=== PATIENT | female | born 1980 | race Caucasian/White ===

== ENCOUNTER 2018-02-25 08:25 | Day surgery (SDC) | payer BC ==
[2018-02-22 11:24] LABS: HEMATOCRIT 41.2 % (36.0-47.0); HEMOGLOBIN 14.2 g/dL (12.0-15.5); MEAN CORPUSCULAR HEMOGLOBIN 32.2 pg (27.0-33.4); MEAN CORPUSCULAR HGB CONC 34.4 g/dL (32.0-36.0); MEAN CORPUSCULAR VOLUME 94 fl (80-97); PLATELET COUNT 205 10^3/uL (150-450); RED CELL DISTRIBUTION WIDTH 12.2 % (11.5-14.0); WHITE BLOOD COUNT 6.4 10^3/uL (4.0-10.5)
[2018-02-22 11:40] LABS: APPEARANCE,URINE SLIGHTLY-CLOUDY; BILIRUBIN,URINE NEGATIVE (NEGATIVE); COLOR,URINE YELLOW; GLUCOSE, URINE NEGATIVE (NEGATIVE); KETONES,URINE NEGATIVE (NEGATIVE); LEUKOCYTE ESTERASE,URINE TRACE (NEGATIVE); NITRITE,URINE NEGATIVE (NEGATIVE); PROTEIN,URINE NEGATIVE (NEGATIVE); UROBILINOGEN,URINE NEGATIVE mg/dL (<2.0)
[~2018-02-25 08:25] MED LIST: LACTATED RINGERS 1000 ML IV PRN; LIDOCAINE 0.5% INJ-PF (5 MG/ML) 50 ML SDV SUBCUT PRN
[2018-02-25] MEDS ORDERED: PROPOFOL INJ 200 MG/20 ML VIAL IV ONE (10:41)
[2018-02-25] MEDS ORDERED: MIDAZOLAM 2 MG/2 ML INJ ONE (10:41)
[2018-02-25] MEDS ORDERED: FENTANYL CITRATE INJ/PF 100 MCG/2 ML AMPUL ONE (10:41)
[2018-02-25] MEDS ORDERED: ACETAMINOPHEN 1,000 MG/100 ML RTUPB IV ONE (10:41)
[2018-02-25] MEDS ORDERED: EPHEDRINE SULFATE INJ 50 MG/1 ML AMPULE ONE (10:41)
[2018-02-25] MEDS ORDERED: MEPERIDINE HCL/PF INJ 25 MG/1 ML DISP.SYRIN IV PRN (11:27)
[2018-02-25] MEDS ORDERED: DIPHENHYDRAMINE HCL 50 MG/ML VIAL IV PRN (11:27)
[2018-02-25] MEDS ORDERED: PROMETHAZINE HCL INJ 25 MG/1 ML VIAL IV PRN (11:27)
[2018-02-25] MEDS ORDERED: FENTANYL CITRATE INJ/PF 100 MCG/2 ML AMPUL IV PRN ×3 (11:27)
[2018-02-25] MEDS ORDERED: MORPHINE SULFATE 10 MG/ML INJ IV PRN ×2 (11:27→12:17)
[2018-02-25] MEDS ORDERED: ONDANSETRON HCL INJ/PF 4 MG/2 ML SDV IV PRN (12:18)
[2018-02-25] MEDS ORDERED: IBUPROFEN 800 MG TABLET PO PRN (12:19)
[2018-02-25] MEDS ORDERED: OXYCODONE-ACETAMINOPHEN 5-325 MG TABLET PO PRN (12:19)
[2018-02-25] MEDS ORDERED: LIDOCAINE 2% INJ-PF (20 MG/ML) 2 ML AMPUL ONE (13:21)
[2018-02-25] MEDS ORDERED: DEXAMETHASONE SOD PHOSPHATE INJ 4 MG/1 ML VIAL ONE (13:21)
[2018-02-25] MEDS ORDERED: NEOSTIGMINE METHYLSULFATE 10 MG/10 ML VIAL ONE (13:21)
[2018-02-25] MEDS ORDERED: KETOROLAC TROMETHAMINE 60 MG/2 ML SDV ONE (13:21)
[2018-02-25] MEDS ORDERED: ROCURONIUM BROMIDE INJ 50 MG/5 ML VIAL IV ONE (13:21)
[2018-02-25] MEDS ORDERED: METOCLOPRAMIDE HCL INJ/PF 10 MG/2 ML SDV ONE (13:21)
[2018-02-25] MEDS ORDERED: SUCCINYLCHOLINE CHLORIDE INJ 200 MG/10 ML VIAL ONE (13:21)
[2018-02-25] MEDS ORDERED: ONDANSETRON HCL INJ/PF 4 MG/2 ML SDV ONE (13:21)
[2018-02-25] MEDS ORDERED: GLYCOPYRROLATE 1 MG/5 ML SYRINGE ONE (13:21)
--- NOTE | 2018-02-25 13:43 | OPERATIVE REPORT E ---
Operative Report NAME: VA KUO : 1980 AGE: 37Y DATE OF SURGERY: 02/25/2018 ROOM: PREOPERATIVE DIAGNOSIS: Undesired fertility. POSTOPERATIVE DIAGNOSIS: Undesired fertility. SURGEON: SOLEDAD WITT M.D. ANESTHESIA: Dr. Bell with general. FINDINGS: Uterus sounded to approximately 10 cm. Normal uterus, tubes, and ovaries. ESTIMATED BLOOD LOSS: 50 mL. SPECIMENS REMOVED: Bilateral fallopian tubes. PROCEDURE: Laparoscopic bilateral salpingectomy. PROCEDURE IN DETAIL: The patient was taken to the operating room and prepared and draped in a normal sterile fashion in the dorsal lithotomy position. Under sterile conditions, an in-and-out catheter was performed of approximately 100 mL of clear urine. A sterile speculum was placed in the vagina and the cervix was grasped on the anterior lip with a single-toothed tenaculum and prepped with Betadine. Uterine sound was introduced for the above findings noted. A Hulka clamp was then placed through the cervix for uterine manipulation. The speculum was removed and the gloves were changed and attention was turned to the upper portion of the case where an umbilical skin incision was made with a scalpel. An attempt to enter the peritoneal cavity with the Veress needle was not successful so a cutdown was performed and we entered using the Optiview with direct visualization. Once peritoneal cavity placement was obtained, the abdomen was insufflated with approximately 2 L of CO2 gas and the patient was placed in steep Trendelenburg. The left and right 5 mm ports were placed under direct visualization and beginning with the left fallopian tube, this was grasped with an atraumatic grasper and this fallopian tube was removed using the LigaSure device with good hemostasis. We then turned our attention to the right adnexa and repeated this in a similar fashion removing the fallopian tube starting at the fimbriated end with a LigaSure and elevating with an atraumatic grasper. We then removed both fallopian tubes through the right port. I moved the camera to the lower right and left ports in order to examine for any bleeding and deemed the liver and gallbladder and omentum were all noted to be hemostatic and normal. We had noticed some bleeding coming from the abdominal wall during the procedure, so I did inspect the abdominal wall near the umbilical incision and found this to have a small amount of oozing coming from the subcutaneous layers, but no other gloria injury was noted, and once again, I looked at the omentum and found it to be hemostatic and no explanation for any other bleeding. The ports were then removed under direct visualization. The umbilical port was left for deflation and this was performed and then the port was removed. The skin was closed at all 3 sites using 4-0 Vicryl and there was no oozing at the end of the procedure in regards to bleeding. The patient tolerated the procedure well. Sponge, lap, and needle counts were correct x2. Hulka clamp was removed while patient was still under anesthesia, and the patient was then taken to recovery in stable condition. DICTATING PHYSICIAN: SOLEDAD WITT M.D. [id number] PHY#: [id number] ID: [id number] JOB#: [id number] ACCT: [id number] cc:SOLEDAD WITT M.D. >
[2018-02-25 14:00] VITALS: BP 105/74
== END 2018-02-25 14:00 | disposition home or self-care (01) ==
LOC: OROUT 08:25
PROVIDERS: ATTEND Obstetrics & Gynecology
DX: Z30.2 Encounter for sterilization (principal); Z88.0 Allergy status to penicillin
CPT/HCPCS: 58670; 36415; 85027; 81025; 81001; 88302 ×2; J2250; J3490 ×4; J1100; J1885; J3010; J2765; J0330; J2405; J2704; J0131; 840